=== PATIENT | male | born 1965 | race African-American/Black ===

== ENCOUNTER 2016-08-05 16:26 | Inpatient (IN) | payer OTHER ==
[2016-08-05 19:20] VITALS: BMI 29.2
--- NOTE | 2016-08-05 20:52 | HP ---
COWS - Scale Resting Pulse: 0= SC 80 or Below Sweatin=Flushed/Facial Moisture Restless Observation: 3= Extraneous Movement Pupil Size: 1= Pupils >than Normal Bone or Joint Aches: 1= Mild Discomfort Runny Nose/ Eye Tearin= Runny Nose/Eyes GI Upset > 30mins: 1= Stomach Cramp Tremor Observation: 1= Tremor [place], Not Seen Yawning Observation: 1= 1-2x During Session Anxiety or Irritability: 2=Irritable/Anxious Goose Flesh Skin: 0=Smooth Skin COWS Score: 14 CIWA Score - CIWA Score Nausea/Vomitin-Mild Nausea/No Vomiting Muscle Tremors: 3 Anxiety: 3 Agitation: 3 Paroxysmal Sweats: 3 Orientation: 0-Oriented Tacttile Disturbances: 0-None Auditory Disturbances: 1-Very Mild Visual Disturbances: 1-Very Mild Sensitivity Headache: 0-None Present CIWA-Ar Total Score: 15 Admission ROS BHS - HPI Chief Complaint: WITHDRAWAL SYMPTOMS Allergies/Adverse Reactions: Allergies Allergy/AdvReac Type Severity Reaction Status Date / Time No Known Allergies Allergy Verified 05/22/16 16:55 History of Present Illness: 50 Y.O. MAN WITH AN EXTENSIVE HISTORY OF DRUG AND ALCOHOL DEPENDENCE IS SEEKING DETOX. HE REPORTS HAVING A 10 YEAR HISTORY OF SOBRIETY. HE PREVIOUSLY COMPLETED DETOX HERE IN 05/2016. Exam Limitations: No Limitations - Ebola screening Have you traveled outside of the country in the last 21 days: No Have you had contact with anyone from an Ebola affected area: No Have you been sick,other than usual withdrawal symptoms: No Do you have a fever: No - Review of Systems Constitutional: Diaphoresis, Loss of Appetite, Night Sweats, Changes in sleep EENT: reports: Blurred Vision, Tearing, Nose Congestion, Dental Problems Respiratory: reports: No Symptoms reported Cardiac: reports: No Symptoms Reported GI: reports: No Symptoms Reported : reports: Frequency Musculoskeletal: reports: No Symptoms Reported Integumentary: reports: No Symptoms Reported Neuro: reports: No Symptoms reported Endocrine: reports: No Symptoms Reported Hematology: reports: No Symptoms Reported Psychiatric: reports: Anxious Other Systems: Reviewed and Negative Patient History - Patient Medical History Hx Anemia: No Hx Asthma: No Hx Chronic Obstructive Pulmonary Disease (COPD): No Hx Cancer: No Hx Cardiac Disorders: No Hx Congestive Heart Failure: No Hx Hypertension: No Hx Hypercholesterolemia: No Hx Pacemaker: No HX Cerebrovascular Accident: No Hx Seizures: No Hx Dementia: No Hx Diabetes: No Hx Gastrointestinal Disorders: No Hx Liver Disease: No Hx Genitourinary Disorders: No Hx Sexually Transmitted Disorders: No Hx Renal Disease (ESRD): No Hx Thyroid Disease: No Hx Human Immunodeficiency Virus (HIV): No Hx Hepatitis C: No Hx Depression: No Hx Suicide Attempt: No Hx Bipolar Disorder: No Hx Schizophrenia: No - Patient Surgical History Past Surgical History: Yes Hx Neurologic Surgery: No Hx Cataract Extraction: No Hx Cardiac Surgery: No Hx Lung Surgery: No Hx Breast Surgery: No Hx Breast Biopsy: No Hx Abdominal Surgery: Yes (GI ULCER BLEEDING 2008) Hx Appendectomy: No Hx Cholecystectomy: No Hx Genitourinary Surgery: No Hx Section: No Hx Orthopedic Surgery: No Anesthesia Reaction: No - PPD History Previous Implant?: No (CXR 05/2016) PPD to be Administered?: No - Reproductive History Patient is a Female of Child Bearing Age (11 -55 yrs old): No - Smoking Cessation Smoking history: Current every day smoker Have you smoked in the past 12 months: Yes Aproximately how many cigarettes per day: 3 Cigars Per Day: 0 Hx Chewing Tobacco Use: No Initiated information on smoking cessation: Yes 'Breaking Loose' booklet given: 08/05/16 - Substance & Tx. History Hx Alcohol Use: Yes Hx Substance Use: Yes Substance Use Type: Alcohol, Heroin Hx Substance Use Treatment: Yes - Substances Abused Alcohol Route: Oral Frequency: Daily Amount used: 1-2 40OZ OF BEER Age of first use: 16 Date of Last Use: 08/04/16 Heroin Route: Inhalation Frequency: Daily Amount used: 10 BAGS Age of first use: 19 Date of Last Use: 08/05/16 Family Disease History - Family Disease History Family Disease History: CA: Mother (KIDNEY ), Other: Father ( LIVER) Admission Physical Exam BHS - Vital Signs Vital Signs: Vital Signs - 24 hr 08/05/16 19:18 Temperature 97.8 F Pulse Rate 72 Respiratory 20 Rate Blood Pressure 138/73 - Physical General Appearance: Yes: No Apparent Distress, Nourished, Appropriately Dressed , Tremorous, Sweating, Anxious HEENTM: Yes: Normal ENT Inspection, Normocephalic, Normal Voice Respiratory: Yes: Chest Non-Tender, Lungs Clear, Normal Breath Sounds, No Respiratory Distress, No Accessory Muscle Use Neck: Yes: No masses,lesions,Nodules, Trachea in good position Breast: Yes: Breast Exam Deferred Cardiology: Yes: Regular Rhythm, Regular Rate, S1, S2 Abdominal: Yes: Non Tender, Flat, Soft Genitourinary: Yes: Frequency Back: Yes: Normal Inspection Musculoskeletal: Yes: Back pain Extremities: Yes: Pedal Edema (LEFT FOOT), Swelling (LEFT FOOT) Neurological: Yes: Alert, Normal Mood/Affect, Normal Response Integumentary: Yes: Pitting Edema (LEFT ANK) Lymphatic: Yes: Within Normal Limits - Diagnostic (1) Alcohol dependence with withdrawal Current Visit: Yes Status: Chronic Qualifiers: Complication of substance-induced condition: uncomplicated Qualified Code(s): F10.230 - Alcohol dependence with withdrawal, uncomplicated (2) Opioid dependence with withdrawal Current Visit: Yes Status: Chronic (3) Nicotine dependence Current Visit: Yes Status: Chronic Qualifiers: Nicotine product type: cigarettes Substance use status: uncomplicated Qualified Code(s): F17.210 - Nicotine dependence, cigarettes, uncomplicated (4) History of treatment for tuberculosis Current Visit: Yes Status: Resolved (5) Bunion of great toe of left foot Current Visit: Yes Status: Chronic Cleared for Admission [facility] - Detox or Rehab [facility] Level of Care: Medically Managed Detox Regimen/Protocol: Methadone/Librium S Breath Alcohol Content Breath Alcohol Content: 0 Urine Drug Screen - Results Drug Screen Negative: No Urine Drug Screen Results: MARYAM-Cocaine, OPI-Opiates, MDMA-Ecstasy, OXY-Oxycodone
[2016-08-05] MEDS ORDERED: guaiFENesin/D-METHORPHAN HB 10 ML UNIT-DOSE CUPS PO PRN (21:11)
[2016-08-05] MEDS ORDERED: P-EPHED 60MG/TRIPROLIDI 2.5MG TABLET PO PRN (21:11)
[2016-08-05] MEDS ORDERED: chlordiazePOXIDE HCL 25 MG CAPSULE PO PRN (21:11)
[2016-08-05] MEDS ORDERED: chlordiazePOXIDE HCL 25 MG CAPSULE PO ONE (21:11)
[2016-08-05] MEDS ORDERED: MAGNESIUM CITRATE 300 ML BOTTLE PO PRN (21:11)
[2016-08-05] MEDS ORDERED: MAG HYDROX/AL HYDROX/SIMETH 30 ML UNIT-DOSE CUP PO PRN (21:11)
[2016-08-05] MEDS ORDERED: MENTHOL/PHENOL 1 EACH UD MM PRN (21:11)
[2016-08-05] MEDS ORDERED: IBUPROFEN 400 MG TABLET (FP) PO PRN (21:11)
[2016-08-05] MEDS ORDERED: MAGNESIUM HYDROX 2400MG/30ML ORAL SUSPENSION 30 ML CUP PO PRN (21:11)
[2016-08-05] MEDS ORDERED: LOPERAMIDE HCL 2 MG CAPSULE PO PRN (21:11)
[2016-08-05] MEDS ORDERED: METHADONE HCL 10 MG TABLET (FOR DETOX USE ONLY) PO ONE ×2 (21:11→23:00)
[2016-08-05] MEDS ORDERED: ACETAMINOPHEN 325 MG TABLET (FP) PO PRN (21:11)
[2016-08-05] MEDS ORDERED: chlordiazePOXIDE HCL 25 MG CAPSULE PO SCH (23:00)
[2016-08-05 23:29] LABS: URINE APPEARANCE CLEAR; URINE BILIRUBIN NEGATIVE (NEGATIVE); URINE BLOOD NEGATIVE (NEGATIVE); URINE COLOR LTYELLOW; URINE GLUCOSE (UA) NEGATIVE (NEGATIVE); URINE KETONE NEGATIVE (NEGATIVE); URINE LEUK ESTERASE NEGATIVE (NEGATIVE); URINE NITRITE NEGATIVE (NEGATIVE); URINE PROTEIN NEGATIVE (NEGATIVE); URINE UROBILINOGEN NEGATIVE E.U./dl (0.2-1.0)
[2016-08-06] MEDS ORDERED: chlordiazePOXIDE HCL 25 MG CAPSULE PO ONE (00:58)
[2016-08-06] MEDS ORDERED: chlordiazePOXIDE HCL 25 MG CAPSULE PO PRN (00:58)
[2016-08-06] MEDS ORDERED: METHADONE HCL 10 MG TABLET (FOR DETOX USE ONLY) PO ONE ×3 (00:58→22:00)
[2016-08-06] MEDS: THIAMINE HCL 100 MG TABLET (FP) PO SCH ×2 (02:01→22:02)
[2016-08-06] MEDS: chlordiazePOXIDE HCL 25 MG CAPSULE PO SCH ×4 (06:00→22:03)
[2016-08-06] MEDS ORDERED: METHADONE HCL 10 MG TABLET (FOR DETOX USE ONLY) PO SCH (10:00)
[2016-08-06 10:40] LABS: MCH 29.9 pg (25.7-33.7); MCHC 33.9 g/dl (32.0-35.9); MEAN CELL VOLUME 88.2 fl (80-96); MEAN PLT VOLUME 7.4 fl (7.5-11.1); PLATELET COUNT 262 K/MM3 (134-434); RDW 13.5 % (11.9-15.9); WHITE BLOOD COUNT 10.6 K/mm3 (4.0-10.0)
[2016-08-06] MEDS: PRENATAL VITAMINS W/ FOLIC ACID TABLET (FP) PO SCH (10:45)
--- NOTE | 2016-08-06 10:54 | PN ---
[facility] CIWA - CIWA Score Nausea/Vomitin-No Nausea/No Vomiting Muscle Tremors: 4-Moderate,w/Arms Extend Anxiety: 4-Mod. Anxious/Guarded Agitation: 4-Moderately Restless Paroxysmal Sweats: 1-Minimal Palms Moist Orientation: 0-Oriented Tacttile Disturbances: 3-Moderate Itch/Numb/Burn Auditory Disturbances: 0-None Visual Disturbances: 0-None Headache: 0-None Present CIWA-Ar Total Score: 16 BHS COWS - Scale Resting Pulse: 1= [place] 81-100 Sweatin= Chills/Flushing Restless Observation: 3= Extraneous Movement Pupil Size: 2= Moderately Dilated Bone or Joint Aches: 4=Acute Joint/Muscle Pain Runny Nose/ Eye Tearin= Nasal Congestion GI Upset > 30mins: 1= Stomach Cramp Tremor Observation of Outstretched Hands: 1= Tremor [place], Not Seen Yawning Observation: 1= 1-2x During Session Anxiety or Irritability: 2=Irritable/Anxious Goose Flesh Skin: 0=Smooth Skin COWS Score: 17 [facility] Progress Note (SOAP) Subjective: ANXIETY,TREMORS,SWEATS,INTERMITTENT SLEEP. Objective: 08/06/16 10:55 Vital Signs Temperature 98.4 F 08/06/16 10:10 Pulse Rate 92 H 08/06/16 10:10 Respiratory Rate 18 08/06/16 10:10 Blood Pressure 132/86 08/06/16 10:10 O2 Sat by Pulse Oximetry (%) Laboratory Last Values WBC 10.6 K/mm3 (4.0-10.0) H D 08/06/16 07:00 RBC 4.85 M/mm3 (4.00-5.60) 08/06/16 07:00 Hgb 14.5 GM/dL (11.7-16.9) 08/06/16 07:00 Hct 42.8 % (35.4-49) 08/06/16 07:00 MCV 88.2 fl (80-96) 08/06/16 07:00 MCHC 33.9 g/dl (32.0-35.9) 08/06/16 07:00 RDW 13.5 % (11.9-15.9) 08/06/16 07:00 Plt Count 262 K/MM3 (134-434) 08/06/16 07:00 MPV 7.4 fl (7.5-11.1) L 08/06/16 07:00 Urine Color Ltyellow 08/05/16 22:26 Urine Appearance Clear 08/05/16 22:26 Urine pH 5.0 (5.0-8.0) D 08/05/16 22:26 Ur Specific [place] 1.017 (1.001-1.035) 08/05/16 22:26 Urine Protein Negative (NEGATIVE) 08/05/16 22:26 Urine Glucose (UA) Negative (NEGATIVE) 08/05/16 22:26 Urine Ketones Negative (NEGATIVE) 08/05/16 22:26 Urine Blood Negative (NEGATIVE) 08/05/16 22:26 Urine Nitrite Negative (NEGATIVE) 08/05/16 22:26 Urine Bilirubin Negative (NEGATIVE) 08/05/16 22:26 Urine Urobilinogen Negative E.U./dl (0.2-1.0) 08/05/16 22:26 Ur Leukocyte Esterase Negative (NEGATIVE) 08/05/16 22:26 OTHER LABS PENDING Assessment: 08/06/16 10:55 WITHDRAWAL SX Plan: CONTINUE DETOX
[2016-08-06 11:01] LABS: ALBUMIN 3.7 g/dl (3.4-5.0); ALK PHOS 138 U/L (45-117); ANION GAP 6 (8-16); BILIRUBIN,TOTAL 0.4 mg/dL (0.2-1.0); CALCIUM 9.2 mg/dL (8.5-10.1); CO2 26 mmol/L (21-32); CREATININE 1.1 mg/dL (0.7-1.3); GLUCOSE,RANDOM 102 mg/dL (74-106); SGOT/AST 11 U/L (15-37); SGPT/ALT 19 U/L (12-78); TOT PROT 7.4 g/dl (6.4-8.2)
--- NOTE | 2016-08-06 11:51 | EKG ---
Test Reason : Blood Pressure : / mmHG Vent. Rate : 060 BPM Atrial Rate : 060 BPM P-R Int : 158 ms QRS Dur : 070 ms QT Int : 386 ms P-R-T Axes : 067 002 -01 degrees QTc Int : 386 ms NORMAL SINUS RHYTHM LOW VOLTAGE QRS NONSPECIFIC T WAVE ABNORMALITY ABNORMAL ECG NO PREVIOUS ECGS AVAILABLE Confirmed by SRIRAM GUTIERREZ MD ([id number]) on 08/06/2016 11:50:28 AM Referred By: Confirmed By:SRIRAM GUTIERREZ MD
--- NOTE | 2016-08-06 18:52 | PN ---
S Progress Note Note: received nurse call round 1704 pm temp 100.7 recommend tylenal 650 mg x 1 increase oral fluid repeat temp in 2 hours around 2100 pm
[2016-08-06] MEDS ORDERED: chlordiazePOXIDE HCL 25 MG CAPSULE PO SCH (23:00)
[2016-08-07] MEDS: chlordiazePOXIDE HCL 25 MG CAPSULE PO SCH ×4 (05:57→22:11)
[2016-08-07] MEDS ORDERED: METHADONE HCL 5 MG TABLET (FOR DETOX USE ONLY) PO SCH ×2 (10:00)
[2016-08-07] MEDS: PRENATAL VITAMINS W/ FOLIC ACID TABLET (FP) PO SCH (10:36)
--- NOTE | 2016-08-07 10:58 | PN ---
[facility] CIWA - CIWA Score Nausea/Vomitin-Mild Nausea/No Vomiting Muscle Tremors: 3 Anxiety: 4-Mod. Anxious/Guarded Agitation: 4-Moderately Restless Paroxysmal Sweats: 3 Orientation: 0-Oriented Tacttile Disturbances: 0-None Auditory Disturbances: 0-None Visual Disturbances: 0-None Headache: 0-None Present CIWA-Ar Total Score: 15 BHS COWS - Scale Resting Pulse: 1= [place] 81-100 Sweatin=Flushed/Facial Moisture Restless Observation: 1= Difficult to Sit Still Pupil Size: 0= Normal to Room Light Bone or Joint Aches: 2= Severe Diffuse Aches Runny Nose/ Eye Tearin= Runny Nose/Eyes GI Upset > 30mins: 2= Nausea/Diarrhea Tremor Observation of Outstretched Hands: 2= Slight Tremor Visible Yawning Observation: 1= 1-2x During Session Anxiety or Irritability: 2=Irritable/Anxious Goose Flesh Skin: 0=Smooth Skin COWS Score: 15 [facility] Progress Note (SOAP) Subjective: ANXIETY,TREMORS,SWEATING,INTERRUPTED SLEEP,RESTLESS. Objective: 08/07/16 10:57 Vital Signs - 8 hr 08/07/16 08/07/16 08/07/16 03:27 06:19 09:59 Temperature 98.6 F 99.5 F Pulse Rate 90 84 Respiratory 18 18 18 Rate Blood Pressure 123/82 154/76 Laboratory Tests 08/05/16 08/06/16 08/06/16 22:26 07:00 07:00 WBC 10.6 H D RBC 4.85 Hgb 14.5 Hct 42.8 MCV 88.2 MCHC 33.9 RDW 13.5 Plt Count 262 MPV 7.4 L Sodium 137 Potassium 3.8 Chloride 105 Carbon Dioxide 26 Anion Gap 6 L BUN 16 Creatinine 1.1 Creat Clearance w eGFR > 60 Random Glucose 102 Calcium 9.2 Total Bilirubin 0.4 D AST 11 L ALT 19 Alkaline Phosphatase 138 H Total Protein 7.4 Albumin 3.7 Urine Color Ltyellow Urine Appearance Clear Urine pH 5.0 D Ur Specific [place] 1.017 Urine Protein Negative Urine Glucose (UA) Negative Urine Ketones Negative Urine Blood Negative Urine Nitrite Negative Urine Bilirubin Negative Urine Urobilinogen Negative Ur Leukocyte Esterase Negative RPR Titer 08/06/16 07:00 WBC RBC Hgb Hct MCV MCHC RDW Plt Count MPV Sodium Potassium Chloride Carbon Dioxide Anion Gap BUN Creatinine Creat Clearance w eGFR Random Glucose Calcium Total Bilirubin AST ALT Alkaline Phosphatase Total Protein Albumin Urine Color Urine Appearance Urine pH Ur Specific [place] Urine Protein Urine Glucose (UA) Urine Ketones Urine Blood Urine Nitrite Urine Bilirubin Urine Urobilinogen Ur Leukocyte Esterase RPR Titer Nonreactive LABS NOTED Assessment: 08/07/16 10:57 WITHDRAWAL SX. Plan: CONTINUE DETOX
[2016-08-07] MEDS: THIAMINE HCL 100 MG TABLET (FP) PO SCH (22:11)
[2016-08-07] MEDS: diphenhydrAMINE HCL 50 MG CAPSULE PO PRN (22:12)
[2016-08-07] MEDS ORDERED: chlordiazePOXIDE 5 MG CAPSULE PO SCH (23:00)
[2016-08-08] MEDS: hydrOXYzine PAMOATE 50 MG CAPSULE (FP) PO PRN (02:18)
[2016-08-08] MEDS: chlordiazePOXIDE 5 MG CAPSULE PO SCH ×4 (05:49→22:14)
[2016-08-08] MEDS: PRENATAL VITAMINS W/ FOLIC ACID TABLET (FP) PO SCH (10:46)
[2016-08-08] MEDS: METHADONE HCL 5 MG TABLET (FOR DETOX USE ONLY) PO SCH (10:46)
--- NOTE | 2016-08-08 16:19 | PN ---
BHS Progress Note (SOAP) Subjective: nausea, sweats, interrupted sleep, anxiety, tremors Objective: 08/08/16 16:18 Vital Signs - 24 hr 08/07/16 08/07/16 08/08/16 18:04 21:56 00:33 Temperature 99.8 F H 99.3 F Pulse Rate 92 H 88 Respiratory 18 19 18 Rate Blood Pressure 113/66 110/70 08/08/16 08/08/16 08/08/16 06:08 09:40 13:52 Temperature 98.9 F 98.1 F 98.1 F Pulse Rate 87 101 H 98 H Respiratory 18 20 20 Rate Blood Pressure 132/78 129/83 115/75 Laboratory Tests 08/05/16 08/06/16 08/06/16 22:26 07:00 07:00 WBC 10.6 H D RBC 4.85 Hgb 14.5 Hct 42.8 MCV 88.2 MCHC 33.9 RDW 13.5 Plt Count 262 MPV 7.4 L Sodium 137 Potassium 3.8 Chloride 105 Carbon Dioxide 26 Anion Gap 6 L BUN 16 Creatinine 1.1 Creat Clearance w eGFR > 60 Random Glucose 102 Calcium 9.2 Total Bilirubin 0.4 D AST 11 L ALT 19 Alkaline Phosphatase 138 H Total Protein 7.4 Albumin 3.7 Urine Color Ltyellow Urine Appearance Clear Urine pH 5.0 D Ur Specific [place] 1.017 Urine Protein Negative Urine Glucose (UA) Negative Urine Ketones Negative Urine Blood Negative Urine Nitrite Negative Urine Bilirubin Negative Urine Urobilinogen Negative Ur Leukocyte Esterase Negative RPR Titer 08/06/16 07:00 WBC RBC Hgb Hct MCV MCHC RDW Plt Count MPV Sodium Potassium Chloride Carbon Dioxide Anion Gap BUN Creatinine Creat Clearance w eGFR Random Glucose Calcium Total Bilirubin AST ALT Alkaline Phosphatase Total Protein Albumin Urine Color Urine Appearance Urine pH Ur Specific [place] Urine Protein Urine Glucose (UA) Urine Ketones Urine Blood Urine Nitrite Urine Bilirubin Urine Urobilinogen Ur Leukocyte Esterase RPR Titer Nonreactive Assessment: 08/08/16 16:18 withdrawal sx Plan: cont detox, encourage fluids
[2016-08-08] MEDS: THIAMINE HCL 100 MG TABLET (FP) PO SCH (22:14)
[2016-08-08] MEDS: diphenhydrAMINE HCL 50 MG CAPSULE PO PRN (22:14)
[2016-08-08] MEDS ORDERED: chlordiazePOXIDE HCL 10 MG CAPSULE PO SCH (23:00)
[2016-08-09] MEDS: hydrOXYzine PAMOATE 50 MG CAPSULE (FP) PO PRN (04:08)
[2016-08-09] MEDS: chlordiazePOXIDE HCL 10 MG CAPSULE PO SCH ×4 (05:34→22:38)
[2016-08-09] MEDS ORDERED: METHADONE HCL 10 MG TABLET (FOR DETOX USE ONLY) PO SCH (10:00)
[2016-08-09] MEDS: PRENATAL VITAMINS W/ FOLIC ACID TABLET (FP) PO SCH (10:23)
[2016-08-09] MEDS: METHADONE HCL 5 MG TABLET (FOR DETOX USE ONLY) PO SCH (10:23)
--- NOTE | 2016-08-09 10:30 | PN ---
BHS Progress Note (SOAP) Subjective: sleep interruption, shakes, sweats,cramps and diarrhea Objective: 08/09/16 10:29 Vital Signs 08/09/16 06:25 Temperature 97 F L Pulse Rate 90 Respiratory 18 Rate Blood Pressure 114/69 Laboratory Last Values WBC 10.6 K/mm3 (4.0-10.0) H D 08/06/16 07:00 RBC 4.85 M/mm3 (4.00-5.60) 08/06/16 07:00 Hgb 14.5 GM/dL (11.7-16.9) 08/06/16 07:00 Hct 42.8 % (35.4-49) 08/06/16 07:00 MCV 88.2 fl (80-96) 08/06/16 07:00 MCHC 33.9 g/dl (32.0-35.9) 08/06/16 07:00 RDW 13.5 % (11.9-15.9) 08/06/16 07:00 Plt Count 262 K/MM3 (134-434) 08/06/16 07:00 MPV 7.4 fl (7.5-11.1) L 08/06/16 07:00 Sodium 137 mmol/L (136-145) 08/06/16 07:00 Potassium 3.8 mmol/L (3.5-5.1) 08/06/16 07:00 Chloride 105 mmol/L (98-107) 08/06/16 07:00 Carbon Dioxide 26 mmol/L (21-32) 08/06/16 07:00 Anion Gap 6 (8-16) L 08/06/16 07:00 BUN 16 mg/dL (7-18) 08/06/16 07:00 Creatinine 1.1 mg/dL (0.7-1.3) 08/06/16 07:00 Creat Clearance w eGFR > 60 (>60) 08/06/16 07:00 Random Glucose 102 mg/dL (74-106) 08/06/16 07:00 Calcium 9.2 mg/dL (8.5-10.1) 08/06/16 07:00 Total Bilirubin 0.4 mg/dL (0.2-1.0) D 08/06/16 07:00 AST 11 U/L (15-37) L 08/06/16 07:00 ALT 19 U/L (12-78) 08/06/16 07:00 Alkaline Phosphatase 138 U/L (45-117) H 08/06/16 07:00 Total Protein 7.4 g/dl (6.4-8.2) 08/06/16 07:00 Albumin 3.7 g/dl (3.4-5.0) 08/06/16 07:00 Urine Color Ltyellow 08/05/16 22:26 Urine Appearance Clear 08/05/16 22:26 Urine pH 5.0 (5.0-8.0) D 08/05/16 22:26 Ur Specific [place] 1.017 (1.001-1.035) 08/05/16 22:26 Urine Protein Negative (NEGATIVE) 08/05/16 22:26 Urine Glucose (UA) Negative (NEGATIVE) 08/05/16 22:26 Urine Ketones Negative (NEGATIVE) 08/05/16 22:26 Urine Blood Negative (NEGATIVE) 08/05/16 22:26 Urine Nitrite Negative (NEGATIVE) 08/05/16 22:26 Urine Bilirubin Negative (NEGATIVE) 08/05/16 22:26 Urine Urobilinogen Negative E.U./dl (0.2-1.0) 08/05/16 22:26 Ur Leukocyte Esterase Negative (NEGATIVE) 08/05/16 22:26 RPR Titer Nonreactive (NONREACTIVE) 08/06/16 07:00 Labs noted Assessment: 08/09/16 10:29 withdrawal sx Plan: continue detox
[2016-08-09] MEDS: THIAMINE HCL 100 MG TABLET (FP) PO SCH (22:38)
[2016-08-09] MEDS: diphenhydrAMINE HCL 50 MG CAPSULE PO PRN (22:39)
[2016-08-10] MEDS ORDERED: METHADONE HCL 5 MG TABLET (FOR DETOX USE ONLY) PO SCH (06:00)
[2016-08-10] MEDS ORDERED: METHADONE HCL 10 MG TABLET (FOR DETOX USE ONLY) PO SCH (10:00)
[2016-08-10] MEDS: PRENATAL VITAMINS W/ FOLIC ACID TABLET (FP) PO SCH (10:32)
--- NOTE | 2016-08-10 12:32 | PN ---
B[facility] Progress Note (SOAP) Subjective: Anxious, nausea, diarrhea since last night and 2 episodes this morning, interrupted sleep (benadryl ineffective) Objective: 08/10/16 12:30 Last Vital Signs Temp Pulse Resp BP Pulse Ox 96.3 F L 76 18 106/73 08/10/16 11:28 08/10/16 11:28 08/10/16 11:28 08/10/16 11:28 Laboratory Tests 08/05/16 08/06/16 08/06/16 22:26 07:00 07:00 WBC 10.6 H D RBC 4.85 Hgb 14.5 Hct 42.8 MCV 88.2 MCHC 33.9 RDW 13.5 Plt Count 262 MPV 7.4 L Sodium 137 Potassium 3.8 Chloride 105 Carbon Dioxide 26 Anion Gap 6 L BUN 16 Creatinine 1.1 Creat Clearance w eGFR > 60 Random Glucose 102 Calcium 9.2 Total Bilirubin 0.4 D AST 11 L ALT 19 Alkaline Phosphatase 138 H Total Protein 7.4 Albumin 3.7 Urine Color Ltyellow Urine Appearance Clear Urine pH 5.0 D Ur Specific [place] 1.017 Urine Protein Negative Urine Glucose (UA) Negative Urine Ketones Negative Urine Blood Negative Urine Nitrite Negative Urine Bilirubin Negative Urine Urobilinogen Negative Ur Leukocyte Esterase Negative RPR Titer 08/06/16 07:00 WBC RBC Hgb Hct MCV MCHC RDW Plt Count MPV Sodium Potassium Chloride Carbon Dioxide Anion Gap BUN Creatinine Creat Clearance w eGFR Random Glucose Calcium Total Bilirubin AST ALT Alkaline Phosphatase Total Protein Albumin Urine Color Urine Appearance Urine pH Ur Specific [place] Urine Protein Urine Glucose (UA) Urine Ketones Urine Blood Urine Nitrite Urine Bilirubin Urine Urobilinogen Ur Leukocyte Esterase RPR Titer Nonreactive Labs noted Assessment: 08/10/16 12:31 Withdrawal symptoms Plan: Continue detox, encouraged to drink lots of water and to notify staff of diarrhea
[2016-08-10] MEDS: THIAMINE HCL 100 MG TABLET (FP) PO SCH (22:21)
[2016-08-10] MEDS: diphenhydrAMINE HCL 50 MG CAPSULE PO PRN (22:21)
[2016-08-11] MEDS ORDERED: METHADONE HCL 5 MG TABLET (FOR DETOX USE ONLY) PO SCH (06:00)
--- NOTE | 2016-08-11 08:53 | PN ---
S Progress Note (SOAP) Subjective: no complaints Objective: 08/11/16 08:51 Vital Signs - 8 hr 08/11/16 06:11 Temperature 97.5 F L Pulse Rate 80 Respiratory 18 Rate Blood Pressure 105/78 Laboratory Tests 08/05/16 08/06/16 08/06/16 22:26 07:00 07:00 WBC 10.6 H D RBC 4.85 Hgb 14.5 Hct 42.8 MCV 88.2 MCHC 33.9 RDW 13.5 Plt Count 262 MPV 7.4 L Sodium 137 Potassium 3.8 Chloride 105 Carbon Dioxide 26 Anion Gap 6 L BUN 16 Creatinine 1.1 Creat Clearance w eGFR > 60 Random Glucose 102 Calcium 9.2 Total Bilirubin 0.4 D AST 11 L ALT 19 Alkaline Phosphatase 138 H Total Protein 7.4 Albumin 3.7 Urine Color Ltyellow Urine Appearance Clear Urine pH 5.0 D Ur Specific [place] 1.017 Urine Protein Negative Urine Glucose (UA) Negative Urine Ketones Negative Urine Blood Negative Urine Nitrite Negative Urine Bilirubin Negative Urine Urobilinogen Negative Ur Leukocyte Esterase Negative RPR Titer 08/06/16 07:00 WBC RBC Hgb Hct MCV MCHC RDW Plt Count MPV Sodium Potassium Chloride Carbon Dioxide Anion Gap BUN Creatinine Creat Clearance w eGFR Random Glucose Calcium Total Bilirubin AST ALT Alkaline Phosphatase Total Protein Albumin Urine Color Urine Appearance Urine pH Ur Specific [place] Urine Protein Urine Glucose (UA) Urine Ketones Urine Blood Urine Nitrite Urine Bilirubin Urine Urobilinogen Ur Leukocyte Esterase RPR Titer Nonreactive Assessment: 08/11/16 08:52 completed detox, medically stable Plan: d/c today, f/u PCP after completing rehab at [facility]
--- NOTE | 2016-08-11 08:54 | DS ---
[facility] Detox Discharge Summary Admission Date: 08/05/16 Discharge Date: 08/11/16 - History Present History: Alcohol Dependence, Opioid Dependence Pertinent Past History: nicotine dependence, bunions, anxiety, depression and insomnia - Physical Exam Results Vital Signs: Vital Signs Temperature 97.5 F L 08/11/16 06:11 Pulse Rate 80 08/11/16 06:11 Respiratory Rate 18 08/11/16 06:11 Blood Pressure 105/78 08/11/16 06:11 O2 Sat by Pulse Oximetry (%) Pertinent Admission Physical Exam Findings: withdrawal sx - Treatment Hospital Course: Detox Protocol Followed, Detoxed Safely, Responded well, Discharged Condition Good, Rehab Referral Accepted Patient has Accepted a Rehab Referral to: Yes - Medication Discharge Medications: Ambulatory Orders NK [No Known Home Medication] 05/22/16 - Diagnosis (1) Alcohol dependence with withdrawal Current Visit: Yes Status: Chronic Qualifiers: Complication of substance-induced condition: uncomplicated Qualified Code(s): F10.230 - Alcohol dependence with withdrawal, uncomplicated (2) Bunion of great toe of left foot Current Visit: Yes Status: Chronic (3) Nicotine dependence Current Visit: Yes Status: Chronic Qualifiers: Nicotine product type: cigarettes Substance use status: uncomplicated Qualified Code(s): F17.210 - Nicotine dependence, cigarettes, uncomplicated (4) Opioid dependence with withdrawal Current Visit: Yes Status: Chronic (5) History of treatment for tuberculosis Current Visit: Yes Status: Resolved - AMA Did Patient Leave Against Medical Advice: No
[2016-08-11 09:23] VITALS: BP 118/70; PULSE 68; TEMP 98
[2016-08-11] MEDS: PRENATAL VITAMINS W/ FOLIC ACID TABLET (FP) PO SCH (10:22)
== END 2016-08-11 11:57 | disposition other institution (70) | DRG 773 ==
LOC: YASAS 16:26 → Y3N 21:45
PROVIDERS: ADMIT Internal Medicine; ATTEND Internal Medicine
PROC: HZ2ZZZZ Detoxification Services for Substance Abuse Treatment (ICD-10-PCS; principal; 2016-08-05)
DX: F11.23 Opioid dependence with withdrawal (principal); F10.230 Alcohol dependence with withdrawal, uncomplicated; F17.210 Nicotine dependence, cigarettes, uncomplicated; Z86.11 Personal history of tuberculosis; M21.612 Bunion of left foot; R50.9 Fever, unspecified
CPT/HCPCS: 36415; 80053; 81003; 85027; 86593; 93005; 93010

== ENCOUNTER 2016-08-11 11:27 | Inpatient (IN) | payer OTHER ==
--- NOTE | 2016-08-11 15:12 | HP ---
Psychiatrist Admission - Data Date of interview: 08/11/16 Admission source: 3N Identifying data: This is the first 5N inpatient rehabilitation admission for this 50 year old black male residing with his family in [place]. Medical History: Hx of +PPD with treatment x9 mths, cellulitis to left leg and bunion to left foot with occasional pain, smokes 3 cigarettes a day. Psychiatric History: Patient denies history of psychiatric treatment Physical/Sexual Abuse/Trauma History: Denies history of sexual, physical and verbal abuse. Vital Signs: Vital Signs - 24 hr 08/11/16 12:45 Temperature 98.3 F Pulse Rate 92 H Respiratory 18 Rate Blood Pressure 117/67 Allergies/Adverse Reactions: Allergies Allergy/AdvReac Type Severity Reaction Status Date / Time No Known Allergies Allergy Verified 08/06/16 03:02 Date of last physical exam: 08/06/16 Concur with the findings of this exam: Yes - Substance Abuse/Tx History Hx Alcohol Use: Yes (started at age of 17) Hx Substance Use: Yes Substance Use Type: Alcohol (1-2 40 oz beer daily use), Heroin (started at age of 19, daily use 10 bags) Hx Substance Use Treatment: Yes ([facility] outpatient treatment, did not complete) - Admission Criteria Previous failed treatment: Yes Poor recovery environment: Yes Comorbidities: No Lacks judgement: Yes Mental Status Exam - Mental Status Exam Alert and Oriented to: Time, Place, Person Cognitive Function: Good Patient Appearance: Well Groomed Mood: Anxious Affect: Appropriate, Mood Congruent Patient Behavior: Appropriate, Cooperative Speech Pattern: Appropriate Voice Loudness: Normal Thought Process: Intact Thought Disorder: Not Present Hallucinations: Denies Suicidal Ideation: Denies Homicidal Ideation: Denies Insight/Judgement: Fair Sleep: Poorly, Difficulty falling asleep Appetite: Fair Muscle strength/Tone: Normal Gait/Station: Normal Psychiatric Findings - Problem List ([place] 1, 2,3) (1) Bunion of great toe of left foot Current Visit: No Status: Chronic (2) Nicotine dependence Current Visit: No Status: Chronic Qualifiers: Nicotine product type: cigarettes Substance use status: uncomplicated Qualified Code(s): F17.210 - Nicotine dependence, cigarettes, uncomplicated (3) Opioid dependence Current Visit: Yes Status: Acute (4) Alcohol dependence Current Visit: Yes Status: Acute (5) Opioid-induced sleep disorder Current Visit: Yes Status: Acute - Initial Treatment Plan Initial Treatment Plan: Patient reports that Benadryl not effective and he neeeds med, discussed indications and properties of Remeron, patient is willing to start, wll and med and monitor progress as needed.
--- NOTE | 2016-08-11 16:12 | HP ---
[facility] Rehab Assess/Revision - Admission History Admitted to Rehab from: [facility] Date of Admission to Rehab: 08/11/16 - Vital signs Vital Signs: Vital Signs Period Temp Pulse Resp BP Sys/Cox Pulse Ox Last 24 Hr 98.3 F 92 18 117/67 - Findings Detox History & Physical reviewed: Yes Concur with findings: Yes Comments/Additional Findings: transferred from detox to rehab admission as per protocol
[2016-08-11] MEDS ORDERED: hydrOXYzine PAMOATE 50 MG CAPSULE (FP) PO PRN (16:15)
[2016-08-11] MEDS ORDERED: LOPERAMIDE HCL 2 MG CAPSULE PO PRN (16:15)
[2016-08-11] MEDS ORDERED: ACETAMINOPHEN 325 MG TABLET (FP) PO PRN (16:15)
[2016-08-11] MEDS ORDERED: MAGNESIUM CITRATE 300 ML BOTTLE PO PRN (16:15)
[2016-08-11] MEDS ORDERED: MAGNESIUM HYDROX 2400MG/30ML ORAL SUSPENSION 30 ML CUP PO PRN (16:15)
[2016-08-11] MEDS ORDERED: NICOTINE POLACRILEX 2 MG GUM BUC PRN (16:15)
[2016-08-11] MEDS ORDERED: IBUPROFEN 400 MG TABLET (FP) PO PRN (16:15)
[2016-08-11] MEDS ORDERED: MAG HYDROX/AL HYDROX/SIMETH 30 ML UNIT-DOSE CUP PO PRN (16:15)
[2016-08-11] MEDS ORDERED: guaiFENesin/D-METHORPHAN HB 10 ML UNIT-DOSE CUPS PO PRN (16:15)
[2016-08-11] MEDS ORDERED: MENTHOL/PHENOL 1 EACH UD MM PRN (16:15)
[2016-08-11] MEDS ORDERED: P-EPHED 60MG/TRIPROLIDI 2.5MG TABLET PO PRN (16:15)
[2016-08-11] MEDS ORDERED: NICOTINE 14 MG/24 HOURS TOPICAL PATCH TD PRN (17:56)
[2016-08-11] MEDS: THIAMINE HCL 100 MG TABLET (FP) PO SCH (21:16)
[2016-08-11] MEDS: MIRTAZAPINE 15 MG TABLET (FP) PO SCH (21:16)
[2016-08-11] MEDS: diphenhydrAMINE HCL 50 MG CAPSULE PO PRN (21:17)
[2016-08-12] MEDS: PRENATAL VITAMINS W/ FOLIC ACID TABLET (FP) PO SCH (09:58)
[2016-08-12 10:47] LABS: HIV 1 & 2 AB NEGATIVE; HIV 1 AGp24 NEGATIVE
[2016-08-12] MEDS: MIRTAZAPINE 15 MG TABLET (FP) PO SCH (21:35)
[2016-08-12] MEDS: THIAMINE HCL 100 MG TABLET (FP) PO SCH (21:35)
[2016-08-13] MEDS: PRENATAL VITAMINS W/ FOLIC ACID TABLET (FP) PO SCH (09:59)
[2016-08-13] MEDS: THIAMINE HCL 100 MG TABLET (FP) PO SCH (21:45)
[2016-08-13] MEDS: diphenhydrAMINE HCL 50 MG CAPSULE PO PRN ×2 (21:46→23:34)
[2016-08-13] MEDS: MIRTAZAPINE 15 MG TABLET (FP) PO SCH (21:46)
[2016-08-14] MEDS: PRENATAL VITAMINS W/ FOLIC ACID TABLET (FP) PO SCH (09:53)
[2016-08-14] MEDS: MIRTAZAPINE 15 MG TABLET (FP) PO SCH (22:16)
[2016-08-14] MEDS: THIAMINE HCL 100 MG TABLET (FP) PO SCH (22:17)
[2016-08-15] MEDS: PRENATAL VITAMINS W/ FOLIC ACID TABLET (FP) PO SCH (10:36)
[2016-08-15] MEDS: MIRTAZAPINE 15 MG TABLET (FP) PO SCH (21:58)
[2016-08-15] MEDS: THIAMINE HCL 100 MG TABLET (FP) PO SCH (21:58)
[2016-08-15] MEDS: diphenhydrAMINE HCL 50 MG CAPSULE PO PRN (21:58)
[2016-08-16] MEDS: PRENATAL VITAMINS W/ FOLIC ACID TABLET (FP) PO SCH (10:21)
[2016-08-16] MEDS: THIAMINE HCL 100 MG TABLET (FP) PO SCH (21:10)
[2016-08-16] MEDS: MIRTAZAPINE 15 MG TABLET (FP) PO SCH (21:10)
[2016-08-16] MEDS: diphenhydrAMINE HCL 50 MG CAPSULE PO PRN (21:10)
[2016-08-17] MEDS: PRENATAL VITAMINS W/ FOLIC ACID TABLET (FP) PO SCH (10:21)
[2016-08-17] MEDS: diphenhydrAMINE HCL 50 MG CAPSULE PO PRN ×2 (21:29→22:55)
[2016-08-17] MEDS: MIRTAZAPINE 15 MG TABLET (FP) PO SCH (21:30)
[2016-08-17] MEDS: THIAMINE HCL 100 MG TABLET (FP) PO SCH (21:30)
[2016-08-18] MEDS: PRENATAL VITAMINS W/ FOLIC ACID TABLET (FP) PO SCH (09:45)
[2016-08-18] MEDS: MIRTAZAPINE 15 MG TABLET (FP) PO SCH (21:27)
[2016-08-18] MEDS: THIAMINE HCL 100 MG TABLET (FP) PO SCH (21:27)
[2016-08-18] MEDS: diphenhydrAMINE HCL 50 MG CAPSULE PO PRN ×2 (21:27→23:42)
[2016-08-19] MEDS: THIAMINE HCL 100 MG TABLET (FP) PO SCH (21:59)
[2016-08-19] MEDS: MIRTAZAPINE 15 MG TABLET (FP) PO SCH (21:59)
[2016-08-19] MEDS: diphenhydrAMINE HCL 50 MG CAPSULE PO PRN ×2 (21:59→23:41)
[2016-08-20] MEDS: THIAMINE HCL 100 MG TABLET (FP) PO SCH (21:57)
[2016-08-20] MEDS: diphenhydrAMINE HCL 50 MG CAPSULE PO PRN (21:57)
[2016-08-20] MEDS: MIRTAZAPINE 15 MG TABLET (FP) PO SCH (21:58)
[2016-08-21] MEDS: MIRTAZAPINE 15 MG TABLET (FP) PO SCH (21:17)
[2016-08-21] MEDS: diphenhydrAMINE HCL 50 MG CAPSULE PO PRN (21:17)
[2016-08-21] MEDS: THIAMINE HCL 100 MG TABLET (FP) PO SCH (21:17)
[2016-08-22] MEDS: diphenhydrAMINE HCL 50 MG CAPSULE PO PRN (21:34)
[2016-08-22] MEDS: THIAMINE HCL 100 MG TABLET (FP) PO SCH (21:34)
[2016-08-22] MEDS: MIRTAZAPINE 15 MG TABLET (FP) PO SCH (21:34)
[2016-08-23] MEDS: THIAMINE HCL 100 MG TABLET (FP) PO SCH (21:44)
[2016-08-23] MEDS: diphenhydrAMINE HCL 50 MG CAPSULE PO PRN (21:44)
[2016-08-23] MEDS: MIRTAZAPINE 15 MG TABLET (FP) PO SCH (21:44)
[2016-08-24] MEDS: MIRTAZAPINE 15 MG TABLET (FP) PO SCH (21:39)
[2016-08-24] MEDS: diphenhydrAMINE HCL 50 MG CAPSULE PO PRN (21:39)
[2016-08-24] MEDS: THIAMINE HCL 100 MG TABLET (FP) PO SCH (21:39)
[2016-08-25] MEDS: THIAMINE HCL 100 MG TABLET (FP) PO SCH (21:20)
[2016-08-25] MEDS: diphenhydrAMINE HCL 50 MG CAPSULE PO PRN (21:20)
[2016-08-25] MEDS: MIRTAZAPINE 15 MG TABLET (FP) PO SCH (21:20)
[2016-08-26] MEDS: THIAMINE HCL 100 MG TABLET (FP) PO SCH (21:25)
[2016-08-26] MEDS: MIRTAZAPINE 15 MG TABLET (FP) PO SCH (21:25)
[2016-08-26] MEDS: diphenhydrAMINE HCL 50 MG CAPSULE PO PRN (21:25)
[2016-08-27 07:18] VITALS: BP 140/80; PULSE 77; TEMP 98.3
--- NOTE | 2016-08-27 09:55 | PN ---
Psychiatric Progress Note Vital Signs: Vital Signs Period Temp Pulse Resp BP Sys/Cox Pulse Ox Last 24 Hr 98.3 F 73-77 16-20 140/80 Date of Session: 08/27/16 Chief Complaint:: discharge visit HPI: Patient has addressed alcohol, opioid, nicotine dependence comorbid opioid induced sleep disorder. ROS: WNL Current Medications: Active Medications Generic Name Dose Route Start Last Admin Trade Name Freq PRN Reason Stop Dose Admin Acetaminophen 650 mg 08/11/16 16:15 08/12/16 09:58 Tylenol - PO 650 mg Q4H PRN Administration FEVER OR PAIN Al Hydroxide/Mg Hydroxide 30 ml 08/11/16 16:15 Mylanta Oral Suspension - PO Q6H PRN DYSPEPSIA Diphenhydramine HCl 50 mg 08/11/16 16:15 08/26/16 21:25 Benadryl - PO 50 mg HSMR1 PRN Administration FOR ITCHING Eucalyptus/Menthol/Phenol/Sorbitol 1 each 08/11/16 16:15 Cepastat Lozenge - MM Q4H PRN SORE THROAT Guaifenesin 10 ml 08/11/16 16:15 Robitussin Dm - PO Q6H PRN COUGH Hydroxyzine Pamoate 50 mg 08/11/16 16:15 08/12/16 09:58 Vistaril - PO 50 mg Q4H PRN Administration AGITATION Ibuprofen 400 mg 08/11/16 16:15 08/16/16 18:17 Motrin - PO 400 mg Q6H PRN Administration PAIN Loperamide HCl 4 mg 08/11/16 16:15 Imodium - PO Q6H PRN DIARRHEA Magnesium Hydroxide 30 ml 08/11/16 16:15 Milk Of Magnesia - PO DAILY PRN CONSTIPATION Mirtazapine 15 mg 08/11/16 22:00 08/26/16 21:25 Remeron - PO 15 mg HS JOCY Administration Nicotine 14 mg 08/11/16 17:56 Nicoderm Patch - TD DAILY PRN WITHDRAWAL(CONT SUBST) Nicotine Polacrilex 2 mg 08/11/16 16:15 Nicorette Gum - BUC Q2H PRN NICOTINE REPLACEMENT RX Pseudoephedrine/Triprolidine 1 combo 08/11/16 16:15 Actifed - PO TID PRN NASAL CONGESTION Thiamine HCl 100 mg 08/11/16 22:00 08/26/16 21:25 Vitamin B1 - PO 100 mg HS JOCY Administration Current Side Effect: No Lab tests ordered: No Lab tests reviewed: Yes Provider note:: Patient has completed today his treatment and met his goals, he will continue to address his issues at [facility]. He gained insights into his problem and motivated to continue maintain abstinence. Remeron well tolerated, patient reports that medications was effective in sleep imrpovement, scripts provided for 30 days, patient was encouraged to use alternative ways to cope with life stressors, patient is stable for discharge today. Total face to face time:: 20 Mental Status Exam - Mental Status Exam Alert and Oriented to: Time, Place, Person Cognitive Function: Good Patient Appearance: Well Groomed Mood: Hopeful Affect: Appropriate, Mood Congruent Patient Behavior: Appropriate, Cooperative Speech Pattern: Clear, Appropriate Voice Loudness: Normal Thought Process: Intact, Goal Oriented Thought Disorder: Not Present Hallucinations: Denies Suicidal Ideation: Denies Homicidal Ideation: Denies Insight/Judgement: Fair Sleep: Fair Appetite: Fair Muscle strength/Tone: Normal Gait/Station: Normal Psychiatric Treatment Plan - Problem List (1) Bunion of great toe of left foot Current Visit: No (2) Nicotine dependence Current Visit: No Qualifiers: Nicotine product type: cigarettes Substance use status: uncomplicated Qualified Code(s): F17.210 - Nicotine dependence, cigarettes, uncomplicated (3) Opioid dependence Current Visit: Yes (4) Alcohol dependence Current Visit: Yes (5) Opioid-induced sleep disorder Current Visit: Yes
== END 2016-08-27 10:45 | disposition home or self-care (01) | DRG 772 ==
LOC: YASAS 11:27 → Y5N 11:30
PROVIDERS: ADMIT Psychiatry & Neurology Psychiatry; ATTEND Psychiatry & Neurology Psychiatry
PROC: HZ42ZZZ Group Counseling for Substance Abuse Treatment, Cognitive-Behavioral (ICD-10-PCS; principal; 2016-08-27)
DX: F11.20 Opioid dependence, uncomplicated (principal); F17.210 Nicotine dependence, cigarettes, uncomplicated; F10.20 Alcohol dependence, uncomplicated; F19.282 Other psychoactive substance dependence with psychoactive substance-induced sleep disorder
CPT/HCPCS: 36415; 87389

== ENCOUNTER 2017-09-01 12:36 | Inpatient (IN) | payer OTHER ==
[2017-09-01 15:38] VITALS: BMI 28.5
--- NOTE | 2017-09-01 21:14 | HP ---
COWS - Scale Resting Pulse: 1= [place] 81-100 Sweatin=Flushed/Facial Moisture Restless Observation: 1= Difficult to Sit Still Pupil Size: 0= Normal to Room Light Bone or Joint Aches: 4=Acute Joint/Muscle Pain Runny Nose/ Eye Tearin= Runny Nose/Eyes GI Upset > 30mins: 3= Vomiting/Diarrhea (vomiting x 2, diarrhea x3) Tremor Observation: 2= Slight Tremor Visible Yawning Observation: 0= None Anxiety or Irritability: 2=Irritable/Anxious Goose Flesh Skin: 3=Piloerection COWS Score: 20 CIWA Score - CIWA Score Nausea/Vomitin Muscle Tremors: 4-Moderate,w/Arms Extend Anxiety: 4-Mod. Anxious/Guarded Agitation: 4-Moderately Restless Paroxysmal Sweats: 3 Orientation: 0-Oriented Tacttile Disturbances: 0-None Auditory Disturbances: 0-None Visual Disturbances: 0-None Headache: 0-None Present CIWA-Ar Total Score: 18 Admission ROS S - HPI Chief Complaint: Alcohol and opioid withdrawal symptoms Allergies/Adverse Reactions: Allergies Allergy/AdvReac Type Severity Reaction Status Date / Time No Known Allergies Allergy Verified 09/01/17 20:59 History of Present Illness: 51 years old male with a long history of alcohol and opioid dependence is admitted to detox. Patient has been in previous detox and reports 12 years of sobriety. Patient has past medial history of left foot cellulites and denies suicidal ideation at this time. Exam Limitations: No Limitations - Ebola screening Have you traveled outside of the country in the last 21 days: No (N) Have you had contact with anyone from an Ebola affected area: No Have you been sick,other than usual withdrawal symptoms: No Do you have a fever: No - Review of Systems Constitutional: Chills, Loss of Appetite, Malaise, Night Sweats, Changes in sleep, Unexplained wgt Loss (reports 18 lbs weight lossd) EENT: reports: No Symptoms Reported Respiratory: reports: No Symptoms reported Cardiac: reports: No Symptoms Reported, Irregular Heart Rate GI: reports: Diarrhea, Poor Appetite, Poor Fluid Intake, Vomiting, Abdominal cramping : reports: No Symptoms Reported Musculoskeletal: reports: Back Pain, Muscle Pain, Muscle Weakness Integumentary: reports: Dryness, Flushing Neuro: reports: Tingling, Tremors Endocrine: reports: Flushing Hematology: reports: No Symptoms Reported Psychiatric: reports: Mood/Affect Appropiate, Orientated x3, Agitated, Anxious Other Systems: Reviewed and Negative Patient History - Patient Medical History Hx Anemia: No Hx Asthma: No Hx Chronic Obstructive Pulmonary Disease (COPD): No Hx Cancer: No Hx Cardiac Disorders: No Hx Congestive Heart Failure: No Hx Hypertension: No Hx Hypercholesterolemia: No Hx Pacemaker: No HX Cerebrovascular Accident: No Hx Seizures: No Hx Dementia: No Hx Diabetes: No Hx Gastrointestinal Disorders: Yes (STOMACH ULCER) Hx Liver Disease: No Hx Genitourinary Disorders: No Hx Sexually Transmitted Disorders: No Hx Renal Disease (ESRD): No Hx Thyroid Disease: No Hx Human Immunodeficiency Virus (HIV): No (NEGATIVE 2015) Hx Hepatitis C: No Hx Depression: No Hx Suicide Attempt: No (DENIES SUICIDAL DEATION AT THIS TIME) Hx Bipolar Disorder: No Hx Schizophrenia: No Other Medical History: LEFT FOOT CELLULITIS - Patient Surgical History Past Surgical History: Yes Hx Neurologic Surgery: No Hx Cataract Extraction: No Hx Cardiac Surgery: No Hx Lung Surgery: No Hx Breast Surgery: No Hx Breast Biopsy: No Hx Abdominal Surgery: Yes (GI ULCER BLEEDING 2008) Hx Appendectomy: No Hx Cholecystectomy: No Hx Genitourinary Surgery: No Hx Section: No Hx Orthopedic Surgery: No Anesthesia Reaction: No - PPD History Previous Implant?: No (POSITIVE PPD; INH 9 MONTHS [id number]) PPD to be Administered?: No - Reproductive History Patient is a Female of Child Bearing Age (11 -55 yrs old): No (MALE) - Smoking Cessation Smoking history: Current every day smoker Have you smoked in the past 12 months: Yes Aproximately how many cigarettes per day: 3 Cigars Per Day: 0 Hx Chewing Tobacco Use: No Initiated information on smoking cessation: Yes 'Breaking Loose' booklet given: 09/01/17 - Substance & Tx. History Hx Alcohol Use: Yes Hx Substance Use: Yes Substance Use Type: Cocaine, Heroin Hx Substance Use Treatment: Yes ([facility]) - Substances Abused Alcohol Route: Oral Frequency: Daily Amount used: liquor- 2 pints, beer- 2 - 40oz Age of first use: 15 Date of Last Use: 09/01/17 Heroin Route: Inhalation Frequency: Daily Amount used: 9 bags Age of first use: 16 Date of Last Use: 08/31/17 Family Disease History - Family Disease History Family Disease History: [place]: Mother (KIDNEY ), Other: Father ( LIVER) Admission Physical Exam [facility] - Vital Signs Vital Signs: Vital Signs - 24 hr 09/01/17 15:29 Temperature 95.7 F L Pulse Rate 89 Respiratory 20 Rate Blood Pressure 137/81 - Physical General Appearance: Yes: Moderate Distress, Irritable HEENTM: Yes: Normal Voice, MARI Respiratory: Yes: Lungs Clear, Normal Breath Sounds, No Respiratory Distress Neck: Yes: Supple Breast: Yes: Breast Exam Deferred Cardiology: Yes: Regular Rhythm, Regular Rate, S1, S2 Abdominal: Yes: Normal Bowel Sounds, Soft Genitourinary: Yes: Within Normal Limits Back: Yes: Normal Inspection Musculoskeletal: Yes: Back pain, Muscle Pain, Muscle weakness Extremities: Yes: Tremors Neurological: Yes: Alert, Normal Response Integumentary: Yes: Dry - Diagnostic (1) Alcohol dependence with uncomplicated withdrawal Current Visit: Yes Status: Chronic (2) Cocaine dependence, uncomplicated Current Visit: Yes Status: Chronic (3) Bunion of great toe of left foot Current Visit: Yes Status: Chronic (4) Nicotine dependence Current Visit: Yes Status: Chronic Qualifiers: Nicotine product type: cigarettes Substance use status: uncomplicated Qualified Code(s): F17.210 - Nicotine dependence, cigarettes, uncomplicated (5) Opioid dependence with withdrawal Current Visit: Yes Status: Chronic Cleared for Admission [facility] - Detox or Rehab [facility] Level of Care: Medically Managed Detox Regimen/Protocol: Methadone/Librium [facility] Breath Alcohol Content Breath Alcohol Content: 0 Urine Drug Screen - Results Drug Screen Negative: No Urine Drug Screen Results: MARYAM-Cocaine, OPI-Opiates, MET-Methamphetamine, OXY- Oxycodone
[2017-09-01] MEDS ORDERED: IBUPROFEN 400 MG TABLET (FP) PO PRN (21:35)
[2017-09-01] MEDS ORDERED: MAGNESIUM HYDROX 2400MG/30ML ORAL SUSPENSION 30 ML CUP PO PRN (21:35)
[2017-09-01] MEDS ORDERED: P-EPHED 60MG/TRIPROLIDI 2.5MG TABLET PO PRN (21:35)
[2017-09-01] MEDS ORDERED: LOPERAMIDE HCL 2 MG CAPSULE PO PRN (21:35)
[2017-09-01] MEDS ORDERED: guaiFENesin/D-METHORPHAN HB 10 ML UNIT-DOSE CUPS PO PRN (21:35)
[2017-09-01] MEDS ORDERED: MAG HYDROX/AL HYDROX/SIMETH 30 ML UNIT-DOSE CUP PO PRN (21:35)
[2017-09-01] MEDS ORDERED: ACETAMINOPHEN 325 MG TABLET (FP) PO PRN (21:35)
[2017-09-01] MEDS ORDERED: NICOTINE POLACRILEX 2 MG GUM BC PRN (21:35)
[2017-09-01] MEDS ORDERED: MENTHOL/PHENOL 1 EACH UD MM PRN (21:35)
[2017-09-01] MEDS ORDERED: MAGNESIUM CITRATE 300 ML BOTTLE PO PRN (21:35)
[2017-09-01] MEDS ORDERED: METHADONE HCL 10 MG TABLET (FOR DETOX USE ONLY) PO ONE ×2 (21:35→23:00)
[2017-09-01] MEDS ORDERED: chlordiazePOXIDE HCL 25 MG CAPSULE PO PRN (21:35)
[2017-09-01] MEDS: THIAMINE HCL 100 MG TABLET (FP) PO SCH (23:07)
[2017-09-01] MEDS: chlordiazePOXIDE HCL 25 MG CAPSULE PO SCH (23:07)
[2017-09-01 23:33] LABS: URINE APPEARANCE CLEAR; URINE BILIRUBIN NEGATIVE (NEGATIVE); URINE BLOOD NEGATIVE (NEGATIVE); URINE COLOR LTYELLOW; URINE GLUCOSE (UA) NEGATIVE (NEGATIVE); URINE KETONE NEGATIVE (NEGATIVE); URINE LEUK ESTERASE NEGATIVE (NEGATIVE); URINE NITRITE NEGATIVE (NEGATIVE); URINE PROTEIN NEGATIVE (NEGATIVE); URINE UROBILINOGEN NEGATIVE mg/dL (0.2-1.0)
[2017-09-02] MEDS: chlordiazePOXIDE HCL 25 MG CAPSULE PO SCH ×4 (06:00→22:38)
[2017-09-02] MEDS ORDERED: METHADONE HCL 10 MG TABLET (FOR DETOX USE ONLY) PO SCH (10:00)
[2017-09-02 10:07] LABS: HEMATOCRIT 44.9 % (35.4-49); HEMOGLOBIN 14.6 GM/dL (11.7-16.9); MCH 28.6 pg (25.7-33.7); MCHC 32.5 g/dl (32.0-35.9); MEAN CELL VOLUME 87.9 fl (80-96); MEAN PLT VOLUME 7.3 fl (7.5-11.1); PLATELET COUNT 253 K/MM3 (134-434); RBC 5.11 M/mm3 (4.00-5.60); RDW 13.3 % (11.9-15.9); WHITE BLOOD COUNT 3.4 K/mm3 (4.0-10.0)
[2017-09-02] MEDS: PRENATAL VITAMINS W/ FOLIC ACID TABLET (FP) PO SCH (10:30)
[2017-09-02] MEDS: NICOTINE 14 MG/24 HOURS TOPICAL PATCH TD SCH (10:31)
--- NOTE | 2017-09-02 10:31 | PN ---
[facility] CIWA - CIWA Score Nausea/Vomitin Muscle Tremors: 3 Anxiety: 3 Agitation: 3 Paroxysmal Sweats: 1-Minimal Palms Moist Orientation: 0-Oriented Tacttile Disturbances: 1-Very Mild Itch/Numbness Auditory Disturbances: 1-Very Mild Visual Disturbances: 0-None Headache: 2-Mild CIWA-Ar Total Score: 17 BHS COWS - Scale Resting Pulse: 2= [place] 101-120 Sweatin= Chills/Flushing Restless Observation: 3= Extraneous Movement Pupil Size: 1= Pupils >than Normal Bone or Joint Aches: 2= Severe Diffuse Aches Runny Nose/ Eye Tearin= Runny Nose/Eyes GI Upset > 30mins: 2= Nausea/Diarrhea Tremor Observation of Outstretched Hands: 2= Slight Tremor Visible Yawning Observation: 1= 1-2x During Session Anxiety or Irritability: 2=Irritable/Anxious Goose Flesh Skin: 0=Smooth Skin COWS Score: 18 S Progress Note (SOAP) Subjective: ALERT,IRRITABLE,ANXIOUS,INTERRUPTED SLEEP,TREMOR,PAIN IN THE BODY AND BACK Objective: 09/02/17 10:29 Vital Signs Temperature 98.2 F 09/02/17 10:22 Pulse Rate 108 H 09/02/17 10:22 Respiratory Rate 18 09/02/17 10:22 Blood Pressure 114/92 09/02/17 10:22 O2 Sat by Pulse Oximetry (%) EKG NSR,NORMAL ECG 09/02/17 10:30 Laboratory Last Values WBC 3.4 K/mm3 (4.0-10.0) L D 09/02/17 07:30 RBC 5.11 M/mm3 (4.00-5.60) 09/02/17 07:30 Hgb 14.6 GM/dL (11.7-16.9) 09/02/17 07:30 Hct 44.9 % (35.4-49) 09/02/17 07:30 MCV 87.9 fl (80-96) 09/02/17 07:30 MCH 28.6 pg (25.7-33.7) 09/02/17 07:30 MCHC 32.5 g/dl (32.0-35.9) 09/02/17 07:30 RDW 13.3 % (11.9-15.9) 09/02/17 07:30 Plt Count 253 K/MM3 (134-434) 09/02/17 07:30 MPV 7.3 fl (7.5-11.1) L 09/02/17 07:30 Urine Color Ltyellow 09/01/17 20:21 Urine Appearance Clear 09/01/17 20:21 Urine pH 6.0 (5.0-8.0) 09/01/17 20:21 Ur Specific [place] 1.013 (1.001-1.035) 09/01/17 20:21 Urine Protein Negative (NEGATIVE) 09/01/17 20:21 Urine Glucose (UA) Negative (NEGATIVE) 09/01/17 20:21 Urine Ketones Negative (NEGATIVE) 09/01/17 20:21 Urine Blood Negative (NEGATIVE) 09/01/17 20:21 Urine Nitrite Negative (NEGATIVE) 09/01/17 20:21 Urine Bilirubin Negative (NEGATIVE) 09/01/17 20:21 Urine Urobilinogen Negative mg/dL (0.2-1.0) 09/01/17 20:21 Ur Leukocyte Esterase Negative (NEGATIVE) 09/01/17 20:21 LABS PENDING Assessment: 09/02/17 10:30 WITHDRAWAL SYMPTOM Plan: CONTINUE DETOX
[2017-09-02 10:32] LABS: ALBUMIN 3.4 g/dl (3.4-5.0); ANION GAP 7 (8-16); BLOOD UREA NITROGEN 12 mg/dL (7-18); CALCIUM 8.5 mg/dL (8.5-10.1); CHLORIDE 109 mmol/L (98-107); CO2 26 mmol/L (21-32); GLUCOSE,RANDOM 90 mg/dL (74-106); POTASSIUM 4.1 mmol/L (3.5-5.1); SGOT/AST 9 U/L (15-37); SGPT/ALT 18 U/L (12-78); SODIUM 142 mmol/L (136-145)
[2017-09-02 10:34] LABS: ALK PHOS 117 U/L (45-117); BILIRUBIN,TOTAL 0.6 mg/dL (0.2-1.0); TOT PROT 6.4 g/dl (6.4-8.2)
--- NOTE | 2017-09-02 11:02 | EKG ---
Test Reason : Blood Pressure : / mmHG Vent. Rate : 062 BPM Atrial Rate : 062 BPM P-R Int : 156 ms QRS Dur : 082 ms QT Int : 406 ms P-R-T Axes : 057 -12 012 degrees QTc Int : 412 ms NORMAL SINUS RHYTHM NORMAL ECG WHEN COMPARED WITH ECG OF 06-AUG-2016 02:02, NO SIGNIFICANT CHANGE WAS FOUND Confirmed by SRIRAM GUTIERREZ MD ([id number]) on 09/02/2017 11:01:47 AM Referred By: Confirmed By:SRIRAM GUTIERREZ MD
[2017-09-02] MEDS: THIAMINE HCL 100 MG TABLET (FP) PO SCH (22:38)
[2017-09-03] MEDS: chlordiazePOXIDE HCL 25 MG CAPSULE PO SCH ×3 (05:20→17:53)
--- NOTE | 2017-09-03 10:32 | PN ---
S CIWA - CIWA Score Nausea/Vomitin Muscle Tremors: 3 Anxiety: 3 Agitation: 2 Paroxysmal Sweats: 1-Minimal Palms Moist Orientation: 0-Oriented Tacttile Disturbances: 1-Very Mild Itch/Numbness Auditory Disturbances: 1-Very Mild Visual Disturbances: 0-None Headache: 2-Mild CIWA-Ar Total Score: 16 BHS COWS - Scale Resting Pulse: 1= [place] 81-100 Sweatin= Chills/Flushing Restless Observation: 3= Extraneous Movement Pupil Size: 1= Pupils >than Normal Bone or Joint Aches: 2= Severe Diffuse Aches Runny Nose/ Eye Tearin= Runny Nose/Eyes GI Upset > 30mins: 2= Nausea/Diarrhea Tremor Observation of Outstretched Hands: 2= Slight Tremor Visible Yawning Observation: 1= 1-2x During Session Anxiety or Irritability: 2=Irritable/Anxious Goose Flesh Skin: 0=Smooth Skin COWS Score: 17 S Progress Note (SOAP) Subjective: ALERT,IRRITABLE,ANXIOUS,INTERRUPTED SLEEP,TREMOR,PAIN IN THE BODY AND BACK Objective: 09/03/17 10:30 Vital Signs Temperature 98.2 F 09/03/17 06:00 Pulse Rate 103 H 09/03/17 06:00 Respiratory Rate 18 09/03/17 06:00 Blood Pressure 121/72 09/03/17 06:00 O2 Sat by Pulse Oximetry (%) Laboratory Last Values WBC 3.4 K/mm3 (4.0-10.0) L D 09/02/17 07:30 RBC 5.11 M/mm3 (4.00-5.60) 09/02/17 07:30 Hgb 14.6 GM/dL (11.7-16.9) 09/02/17 07:30 Hct 44.9 % (35.4-49) 09/02/17 07:30 MCV 87.9 fl (80-96) 09/02/17 07:30 MCH 28.6 pg (25.7-33.7) 09/02/17 07:30 MCHC 32.5 g/dl (32.0-35.9) 09/02/17 07:30 RDW 13.3 % (11.9-15.9) 09/02/17 07:30 Plt Count 253 K/MM3 (134-434) 09/02/17 07:30 MPV 7.3 fl (7.5-11.1) L 09/02/17 07:30 Sodium 142 mmol/L (136-145) 09/02/17 07:30 Potassium 4.1 mmol/L (3.5-5.1) 09/02/17 07:30 Chloride 109 mmol/L (98-107) H 09/02/17 07:30 Carbon Dioxide 26 mmol/L (21-32) 09/02/17 07:30 Anion Gap 7 (8-16) L 09/02/17 07:30 BUN 12 mg/dL (7-18) D 09/02/17 07:30 Creatinine 1.0 mg/dL (0.7-1.3) 09/02/17 07:30 Creat Clearance w eGFR > 60 (>60) 09/02/17 07:30 Random Glucose 90 mg/dL (74-106) 09/02/17 07:30 Calcium 8.5 mg/dL (8.5-10.1) 09/02/17 07:30 Total Bilirubin 0.6 mg/dL (0.2-1.0) D 09/02/17 07:30 AST 9 U/L (15-37) L 09/02/17 07:30 ALT 18 U/L (12-78) 09/02/17 07:30 Alkaline Phosphatase 117 U/L (45-117) 09/02/17 07:30 Total Protein 6.4 g/dl (6.4-8.2) 09/02/17 07:30 Albumin 3.4 g/dl (3.4-5.0) 09/02/17 07:30 Urine Color Ltyellow 09/01/17 20:21 Urine Appearance Clear 09/01/17 20:21 Urine pH 6.0 (5.0-8.0) 09/01/17 20:21 Ur Specific [place] 1.013 (1.001-1.035) 09/01/17 20:21 Urine Protein Negative (NEGATIVE) 09/01/17 20:21 Urine Glucose (UA) Negative (NEGATIVE) 09/01/17 20:21 Urine Ketones Negative (NEGATIVE) 09/01/17 20:21 Urine Blood Negative (NEGATIVE) 09/01/17 20:21 Urine Nitrite Negative (NEGATIVE) 09/01/17 20:21 Urine Bilirubin Negative (NEGATIVE) 09/01/17 20:21 Urine Urobilinogen Negative mg/dL (0.2-1.0) 09/01/17 20:21 Ur Leukocyte Esterase Negative (NEGATIVE) 09/01/17 20:21 RPR Titer Nonreactive (NONREACTIVE) 09/02/17 07:30 Assessment: 09/03/17 10:31 WITHDRAWAL SYMPTOM Plan: CONTINUE DETOX
[2017-09-03] MEDS: PRENATAL VITAMINS W/ FOLIC ACID TABLET (FP) PO SCH (10:43)
[2017-09-03] MEDS: METHADONE HCL 5 MG TABLET (FOR DETOX USE ONLY) PO SCH (10:44)
[2017-09-03] MEDS: NICOTINE 14 MG/24 HOURS TOPICAL PATCH TD SCH (10:44)
[2017-09-03] MEDS: chlordiazePOXIDE 5 MG CAPSULE PO SCH (22:43)
[2017-09-03] MEDS: THIAMINE HCL 100 MG TABLET (FP) PO SCH (22:43)
[2017-09-04] MEDS: chlordiazePOXIDE 5 MG CAPSULE PO SCH ×3 (05:32→17:47)
--- NOTE | 2017-09-04 10:29 | PN ---
BHS Progress Note (SOAP) Subjective: alert,irritable,anxious,pain in the body and back,interrupted sleep Objective: 09/04/17 10:28 Vital Signs Temperature 97.7 F 09/04/17 06:00 Pulse Rate 72 09/04/17 06:00 Respiratory Rate 18 09/04/17 06:00 Blood Pressure 124/73 09/04/17 06:00 O2 Sat by Pulse Oximetry (%) Assessment: 09/04/17 10:28 withdrawal symptom Plan: continue detox
[2017-09-04] MEDS: METHADONE HCL 5 MG TABLET (FOR DETOX USE ONLY) PO SCH (10:35)
[2017-09-04] MEDS: NICOTINE 14 MG/24 HOURS TOPICAL PATCH TD SCH (10:35)
[2017-09-04] MEDS: PRENATAL VITAMINS W/ FOLIC ACID TABLET (FP) PO SCH (10:35)
[2017-09-04] MEDS: THIAMINE HCL 100 MG TABLET (FP) PO SCH (22:16)
[2017-09-04] MEDS: chlordiazePOXIDE HCL 10 MG CAPSULE PO SCH (22:16)
[2017-09-05] MEDS: chlordiazePOXIDE HCL 10 MG CAPSULE PO SCH ×3 (05:48→18:05)
[2017-09-05] MEDS ORDERED: METHADONE HCL 10 MG TABLET (FOR DETOX USE ONLY) PO SCH (10:00)
[2017-09-05] MEDS: NICOTINE 14 MG/24 HOURS TOPICAL PATCH TD SCH (10:43)
[2017-09-05] MEDS: PRENATAL VITAMINS W/ FOLIC ACID TABLET (FP) PO SCH (10:43)
--- NOTE | 2017-09-05 11:19 | PN ---
S Progress Note (SOAP) Subjective: ALERT,IRRITABLE,INTERRUPTED SLEEP Objective: 09/05/17 11:18 Vital Signs Temperature 98.2 F 09/05/17 09:52 Pulse Rate 85 09/05/17 09:52 Respiratory Rate 18 09/05/17 09:52 Blood Pressure 116/97 09/05/17 09:52 O2 Sat by Pulse Oximetry (%) Assessment: 09/05/17 11:18 WITHDRAWAL SYMPTOM Plan: CONTINUE DETOX,DISCHARGE IN AM
[2017-09-05] MEDS: THIAMINE HCL 100 MG TABLET (FP) PO SCH (22:49)
[2017-09-06] MEDS ORDERED: METHADONE HCL 5 MG TABLET (FOR DETOX USE ONLY) PO SCH (06:00)
[2017-09-06 06:42] VITALS: BP 108/56; PULSE 69; TEMP 97.9
--- NOTE | 2017-09-06 09:56 | DS ---
[facility] Detox Discharge Summary Admission Date: 09/01/17 Discharge Date: 09/06/17 - History Present History: Alcohol Dependence, Opioid Dependence - Physical Exam Results Vital Signs: Vital Signs Temperature 97.9 F 09/06/17 06:05 Pulse Rate 69 09/06/17 06:05 Respiratory Rate 18 09/06/17 06:05 Blood Pressure 108/56 09/06/17 06:05 O2 Sat by Pulse Oximetry (%) Pertinent Admission Physical Exam Findings: withdrawal sx Laboratory Last Values WBC 3.4 K/mm3 (4.0-10.0) L D 09/02/17 07:30 RBC 5.11 M/mm3 (4.00-5.60) 09/02/17 07:30 Hgb 14.6 GM/dL (11.7-16.9) 09/02/17 07:30 Hct 44.9 % (35.4-49) 09/02/17 07:30 MCV 87.9 fl (80-96) 09/02/17 07:30 MCH 28.6 pg (25.7-33.7) 09/02/17 07:30 MCHC 32.5 g/dl (32.0-35.9) 09/02/17 07:30 RDW 13.3 % (11.9-15.9) 09/02/17 07:30 Plt Count 253 K/MM3 (134-434) 09/02/17 07:30 MPV 7.3 fl (7.5-11.1) L 09/02/17 07:30 Sodium 142 mmol/L (136-145) 09/02/17 07:30 Potassium 4.1 mmol/L (3.5-5.1) 09/02/17 07:30 Chloride 109 mmol/L (98-107) H 09/02/17 07:30 Carbon Dioxide 26 mmol/L (21-32) 09/02/17 07:30 Anion Gap 7 (8-16) L 09/02/17 07:30 BUN 12 mg/dL (7-18) D 09/02/17 07:30 Creatinine 1.0 mg/dL (0.7-1.3) 09/02/17 07:30 Creat Clearance w eGFR > 60 (>60) 09/02/17 07:30 Random Glucose 90 mg/dL (74-106) 09/02/17 07:30 Calcium 8.5 mg/dL (8.5-10.1) 09/02/17 07:30 Total Bilirubin 0.6 mg/dL (0.2-1.0) D 09/02/17 07:30 AST 9 U/L (15-37) L 09/02/17 07:30 ALT 18 U/L (12-78) 09/02/17 07:30 Alkaline Phosphatase 117 U/L (45-117) 09/02/17 07:30 Total Protein 6.4 g/dl (6.4-8.2) 09/02/17 07:30 Albumin 3.4 g/dl (3.4-5.0) 09/02/17 07:30 Urine Color Ltyellow 09/01/17 20:21 Urine Appearance Clear 09/01/17 20:21 Urine pH 6.0 (5.0-8.0) 09/01/17 20:21 Ur Specific [place] 1.013 (1.001-1.035) 09/01/17 20:21 Urine Protein Negative (NEGATIVE) 09/01/17 20:21 Urine Glucose (UA) Negative (NEGATIVE) 09/01/17 20:21 Urine Ketones Negative (NEGATIVE) 09/01/17 20:21 Urine Blood Negative (NEGATIVE) 09/01/17 20:21 Urine Nitrite Negative (NEGATIVE) 09/01/17 20:21 Urine Bilirubin Negative (NEGATIVE) 09/01/17 20:21 Urine Urobilinogen Negative mg/dL (0.2-1.0) 09/01/17 20:21 Ur Leukocyte Esterase Negative (NEGATIVE) 09/01/17 20:21 RPR Titer Nonreactive (NONREACTIVE) 09/02/17 07:30 lab noted - Treatment Hospital Course: Detox Protocol Followed, Detoxed Safely, Responded well, Discharged Condition Good, Rehab Referral Accepted Patient has Accepted a Rehab Referral to: [facility] - Medication Discharge Medications: Ambulatory Orders Mirtazapine [Remeron -] 15 mg PO HS #30 tablet 08/27/16 - Diagnosis (1) Alcohol dependence with uncomplicated withdrawal Current Visit: Yes Status: Acute (2) Opioid dependence with withdrawal Current Visit: Yes Status: Acute - AMA Did Patient Leave Against Medical Advice: No
== END 2017-09-06 10:06 | disposition home or self-care (01) | DRG 773 ==
LOC: YASAS 12:36 → Y6N 20:02
PROVIDERS: ADMIT Internal Medicine; ATTEND Internal Medicine
PROC: HZ2ZZZZ Detoxification Services for Substance Abuse Treatment (ICD-10-PCS; principal; 2017-09-01)
DX: F11.23 Opioid dependence with withdrawal (principal); F10.230 Alcohol dependence with withdrawal, uncomplicated; F14.20 Cocaine dependence, uncomplicated; F17.210 Nicotine dependence, cigarettes, uncomplicated; M21.612 Bunion of left foot
CPT/HCPCS: 36415; 71046-TC-FY; 80053; 81003; 85027; 86593; 93005; 93010